=== PATIENT | male | born 2000 | race Caucasian/White ===

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

== ENCOUNTER 2020-01-20 15:42 | Emergency (ER) | payer OTHER ==
[~2020-01-20] VITALS: Ht 167.6 cm; Wt 73.5 kg
[2020-01-20 15:55] VITALS: BP 119/90; Ht 167.6 cm; Wt 73.5 kg
== END 2020-01-20 16:40 | disposition home or self-care (01) ==
LOC: ED 15:42
DX: Z02.79 Encounter for issue of other medical certificate (principal)